=== PATIENT | female | born 1990 | race Caucasian/White ===

== ENCOUNTER 2019-12-19 10:20 | Emergency (ER) | payer BC ==
--- OUTSIDE RECORDS SUMMARY | 2019-12-19 10:31 | XMS REPORT | Continuity of Care Document ---
:1990 External Reference #:[id number] Author Name Jayy Cutler MD Address [address] [place] [id number] Care Team Providers Name Role Phone Yvonne Medina MD - Internal Medicine Care Team Information Aurist Problems Active Problems Provider Date Amenorrhea Jayy Cutler MD Onset: 12/30/2016 Mild hyperemesis-not delivered Jayy Cutler MD Onset: 12/30/2016 Encounter for supervision of other normal chief port director Ultrasound Onset: 12/30/2016 , first trimester Encounter for supervision of other normal Jayy Cutler MD Onset: 2016 , second trimester Previous uterine surgical scar Jayy Cutler MD Onset: 05/26/2017 False labor before 37 completed weeks of Tamie Curran CNM Onset: 06/25/2017 gestation, third trimester Convalescence after surgery Jayy Cutler MD Onset: 08/01/2017 Social History Type Date Description Comments Sex Unknown Tobacco Use Start: Unknown Never Smoked Cigarettes ETOH Use Denies alcohol use Recreational Drug Use Never Used Drugs Tobacco Use Start: Unknown Patient has never smoked Smoking Status Reviewed: 12/02/19 Patient has never smoked Exercise Type/Frequency Exercises sporadically Tattoo/Piercing Pierced Nasal Area Tattoo/Piercing Pierced ears XIMENA: 07/11/2020 Estimated Date of Based on Final XIMENA Delivery XIMENA: 08/17/2017 Estimated Date of Based on Final XIMENA Delivery XIMENA: 08/17/2017 Estimated Date of Based on Final XIMENA Delivery XIMENA: 02/27/2015 Estimated Date of Based on Final XIMENA Delivery Allergies, Adverse Reactions, Alerts Active Allergies Reaction Severity Comments Date Augmentin N&V 07/07/2014 Doxycycline 11/16/2019 Medications Active Medications SIG Qnty Indications Ordering Provider Date Adult take 1 each day Unknown Gummy/Dha/Folic Acid 0.4-25mg Chewtabs Medications Administered in Office Medication SIG Qnty Indications Ordering Provider Date Kyleena (19.5mg Yvonne EspositoNIKITA navas 10/07/2017 Levonorgestrel) Use Prior To 11/10/17 Only Injection Immunizations Description No Information Available Vital Signs Date Vital Result Comment 12/02/2019 10:06am Weight 207.00 lb Weight 93.895 kg BP Systolic 124 mmHg BP Diastolic 76 mmHg 3 Parity 2 11/16/2019 9:01am Weight 213.00 lb Weight 96.617 kg BP Systolic 134 mmHg BP Diastolic 84 mmHg Last Menstrual Period 2489725 Results Description No Information Available Procedures Date Code Description Status 12/02/2019 79964 Ultrasound, Uterus, Real Time W/Image Completed Documentation, Medical Devices Description No Information Available Encounters Type Date Location Provider Dx Diagnosis Office Visit 12/02/2019 [facility] Jayy N91.1 Secondary 1:45p And Gynecology MD Omayra amenorrhea Office Visit 11/16/2019 [facility] Licha N91.1 Secondary 9:00a And Gynecology Bhavani amenNIKITA ariza Z32.01 Encounter for test, result positive Assessments Date Code Description Provider 12/02/2019 Z34.01 Encounter for supervision of normal chief port director Ultrasound first , first trimester 12/02/2019 N91.1 Secondary amenorrhea Jayy Cutler MD 11/16/2019 N91.1 Secondary amenorrhea Licha Beckham CNM 11/16/2019 Z32.01 Encounter for test, result Licha Rankin CNM positive Plan of Treatment Future Appointment(s):12/23/2019 10:15 am - Licha Beckham CNM at [facility]/2020 - Jayy Cutler MDN91.1 Secondary amenorrhea Functional Status Functional Condition Comment Date Status Glasses Active Mental Status Description No Information Available Referrals Description No Information Available
[2019-12-19 10:50] LABS: ABS Eosinophils 0.1 10^3/ul (0-0.6); ABS Lymphocytes 1.7 10^3/ul (1.0-4.8); ABS Monocytes 0.5 10^3/ul (0-0.8); ABS Neutrophils 3.6 10^3/ul (1.5-7.7); Eosinophil % 1.1 %; Hematocrit 34 % (35-47); Hemoglobin 11.6 g/dL (12.0-16.0); Lymphocyte % 28.6 %; Mean Corpuscular HGB Conc 35 g/dL (31-36); Mean Corpuscular Hemoglobin 27 pg (27-31); Mean Corpuscular Volume 79 fL (80-97); Mean Platelet Volume 7.8 fL (7.4-10.4); Nucleated Red Blood Cells % 0.1; Platelet Count 275 10^3/uL (150-450); Red Blood Count 4.27 10^6 /uL (3.70-4.87); Red Cell Distribution Width 12 % (10-15); White Blood Count 5.9 10^3/uL (3.5-10.8)
[2019-12-19 10:56] LABS: INR 1.05 (0.82-1.09)
--- NOTE | 2019-12-19 11:04 | ED ---
HPI Chest Pain - HPI Summary HPI Summary: 29 y/o female presented to [facility] complaining of chest pain characterized as tightening in the chest while the patient was washing dishes this morning. She notes her heart rate was at 150bpm at the time and has fluctuated since. Patient denies leg pain, fever, chills, headaches, SOB, N/V, and dizziness. She states that she has not had these symptoms before. She has history of hyperlipidemia and has a SHx of a . She is 10 weeks and her G/ P/A is 3/2/0. - History of Current Complaint Chief Complaint: EDChestPainROMI Time Seen by Provider: 12/19/19 10:53 Hx Obtained From: Patient Onset/Duration: Started Hours Ago, Still Present Timing: Constant Current Severity: None Pain Intensity: 0 Pain Scale Used: 0-10 Numeric Chest Pain Location: Diffuse Chest Pain Radiates: No Character: Tightness Aggravating Factor(s): Nothing Alleviating Factor(s): Nothing Associated Signs and Symptoms: Positive: Chest Pain - tightness, Other: - tachycardia. Negative: Headaches, Dizziness, Shortness of Breath, Fever, Chills , Nausea, Vomiting - Allergy/Home Medications Allergies/Adverse Reactions: Allergies Allergy/AdvReac Type Severity Reaction Status Date / Time No Known Allergies Allergy Verified 05/05/16 09:13 PMH/Surg Hx/FS Hx/Imm Hx Previously Healthy: Yes Endocrine/Hematology History: Denies: Hx Diabetes Cardiovascular History: Reports: Hx Hypercholesterolemia Denies: Hx Hypotension, Hx Hypertension GI History: Denies: Hx Irritable Bowel Sensory History: Denies: Hx Legally Blind, Hx Deafness Opthamlomology History: Denies: Hx Legally Blind EENT History: Denies: Hx Deafness - Cancer History Hx Chemotherapy: No Hx Radiation Therapy: No - Surgical History Surgical History: None Surgery Procedure, Year, and Place: none - Immunization History Immunizations Up to Date: Yes Infectious Disease History: No Infectious Disease History: Denies: Traveled Outside the [place] in Last 30 Days - Family History Known Family History: Negative: Hypertension, Diabetes - Social History Occupation: Unemployed, Works From/At Home Lives: With Family Alcohol Use: Rare Hx Substance Use: No Substance Use Type: Reports: None Hx Tobacco Use: No Smoking Status (MU): Never Smoked Tobacco Review of Systems Negative: Fever, Chills Positive: Chest Pain - tightness, Other - tachycardia Negative: Shortness Of Breath Negative: Vomiting, Nausea Negative: Myalgia - lower extremities Neurological: Other - Negative: dizziness Negative: Headache All Other Systems Reviewed And Are Negative: Yes Physical Exam - Summary Physical Exam Summary: VITAL SIGNS: Reviewed. GENERAL: Patient is a well-developed and nourished female who is lying comfortable in the stretcher. Patient is not in any acute respiratory distress. HEAD AND FACE: No signs of trauma. No ecchymosis, hematomas or skull depressions. No sinus tenderness. EYES: PERRLA, EOMI x 2, No injected conjunctiva, no nystagmus. EARS: Hearing grossly intact. Ear canals and tympanic membranes are within normal limits. MOUTH: Oropharynx within normal limits. NECK: Supple, trachea is midline, no adenopathy, no JVD, no carotid bruit, no c- spine tenderness, neck with full ROM. CHEST: Symmetric, no tenderness at palpation. LUNGS: Clear to auscultation bilaterally. No wheezing or crackles. CVS: Tachycardic rate and normal rhythm, S1 and S2 present, no murmurs or gallops appreciated. ABDOMEN: Soft, non-tender. No signs of distention. No rebound, no guarding, and no masses palpated. Bowel sounds are normal. EXTREMITIES: FROM in all major joints, no edema, no cyanosis or clubbing. NEURO: Alert and oriented x 3. No acute neurological deficits. Speech is normal and follows commands. SKIN: Dry and warm. Triage Information Reviewed: Yes Vital Signs On Initial Exam: Initial Vitals Temp Pulse Resp BP Pulse Ox 97.8 F 139 19 151/68 100 12/19/19 10:25 12/19/19 10:25 12/19/19 10:25 12/19/19 10:25 12/19/19 10:25 Vital Signs Reviewed: Yes Procedures - Sedation Patient Received Moderate/Deep Sedation with Procedure: No Diagnostics - Vital Signs Vital Signs Temp Pulse Resp BP Pulse Ox 12/19/19 10:25 97.8 F 139 19 151/68 100 - Laboratory Lab Results: Lab Results 12/19/19 12/19/19 Range/Units 10:43 10:43 WBC 5.9 (3.5-10.8) 10^3/uL RBC 4.27 (3.70-4.87) 10^6 /uL Hgb 11.6 L (12.0-16.0) g/dL Hct 34 L (35-47) % MCV 79 L (80-97) fL MCH 27 (27-31) pg MCHC 35 (31-36) g/dL RDW 12 (10-15) % Plt Count 275 (150-450) 10^3/uL MPV 7.8 (7.4-10.4) fL Neut % (Auto) 60.9 % Lymph % (Auto) 28.6 % [place] % (Auto) 9.0 % Eos % (Auto) 1.1 % Baso % (Auto) 0.4 % Absolute Neuts (auto) 3.6 (1.5-7.7) 10^3/ul Absolute Lymphs (auto) 1.7 (1.0-4.8) 10^3/ul Absolute Monos (auto) 0.5 (0-0.8) 10^3/ul Absolute Eos (auto) 0.1 (0-0.6) 10^3/ul Absolute Basos (auto) 0.0 (0-0.2) 10^3/ul Absolute Nucleated RBC 0.0 10^3/ul Nucleated RBC % 0.1 INR (Anticoag Therapy) 1.05 (0.82-1.09) Result Diagrams: 12/19/19 10:43 12/19/19 10:43 Lab Statement: Any lab studies that have been ordered have been reviewed, and results considered in the medical decision making process. - Ultrasound Venous Doppler Study Ultrasound Interpretation Completed By: Radiologist Summary of Ultrasound Findings: NO RIGHT LOWER EXTREMITY DEEP VEIN THROMBOSIS. NO LEFT LOWER EXTREMITY DEEP VEIN THROMBOSIS. ED physician has reviewed this report. - EKG 1019 Cardiac Rate: Tachycardia - 134 BPM EKG Rhythm: Sinus Tachycardia ST Segment: Normal Ectopy: None Summary of EKG Findings: An EKG at 1019 reveals sinus tachycardia at 134 BPM, nml axis, nml intervals. No STEMI. No acute changes. Dr. Delgado has reviewed and interpreted this EKG at 1025 12/19/[address] Russell has confirmed the EKG at 1350 12/19/2019. Re-Evaluation - Re-Evaluation First Eval Re-Evaluation Time: 13:59 Change: Unchanged Comment: Pt declines CTA of her chest/thorax and an ABG test. Second Eval Re-Evaluation Time: 14:40 Comment: Patinet agreeable with plan for discharge. Chest Pain Course/Dx - Course Assessment/Plan: 29 y/o female presented to [facility] complaining of chest pain characterized as tightening in the chest while the patient was washing dishes this morning. She notes her heart rate was at 150bpm at the time and has fluctuated since. Patient denies leg pain, fever, chills, headaches, SOB, N/V, and dizziness. She states that she has not had these symptoms before. She has history of hyperlipidemia and has a SHx of a . She is 10 weeks and her G/P/A is 3/2/0. In the ED course the patient was placed on a operational test mechanic, IV access was obtained, IV fluids started. Blood test w/o a significant abnormality except for slight anemia with hemoglobin of 11.6 and hematocrit of 34, potassium of 3.4, creatinine of 0.4, glucose of 107, troponin of 0.01, and beta hCG of 33,414. Influenza A and B are negative. Bilateral lower extremity ultrasound shows no DVTs. Patient refused an ABG. The patient continues to be tachycardic between 110-120 bpm. The patients O2 sat is 100% on room air. I discussed the events of the need for a CTA of the chest to rule out PE, but the patient refuses. The patient understands the risks and benefits of this test. However, the patient still refuses. I discussed my physical exam and findings with Dr. Resendez from [facility] and he has no other recommendations. He has low suspicion for a PE since the patient is not hypoxic. The patient is saturating 100% on room air. I discussed all the findings and test results with the patient. Patient was instructed to return to the emergency room immediately if any of the symptoms return or worsen. Plan of care was discussed with the patient and understands and agrees. All questions were answered at patient satisfaction. There were no further complaints or concerns. Lung exam before discharge: CTA B/L. Good air exchange. No wheezing or crackles heard. CVS: S1 and S2 present. No murmurs appreciated. Patient is alert and oriented x 3. Patient is hemodynamically stable. Patient will be discharged home with follow up with [facility] in 2-3 days. - Diagnoses Provider Diagnoses: Tachycardia, - Provider Notifications Discussed Care Of Patient With: Vishnu Resendez - [facility] Instructed by Provider To: Other - I discussed the patients case with Dr. Resendez since the patient is refusing a CTA and ABG. He agrees with no further workup, but he recommends follow up with [facility] and cardiology as needed. He doesnt think the patient is suffering from a PE. Discharge ED - Sign-Out/Discharge Documenting (check all that apply): Patient Departure - Patient will be discharged home. - Discharge Plan Condition: Stable Disposition: HOME Patient Education Materials: Tachycardia (ED) Referrals: Yvonne Medina MD [Primary Care Provider] - 3 Days Vishnu Resendez MD [Medical Doctor] - 3 Days Won El MD [Medical Doctor] - If Needed Additional Instructions: Follow up with your primary care provider in 2-3 days. Follow up with [facility] in 2-3 days, and cardiology as needed. Return to the emergency department for any new or worsening symptoms. - Billing Disposition and Condition Condition: STABLE Disposition: Home - Attestation Statements Document Initiated by Miniibe: Yes Documenting Scribe: Obed Zhang Natalie George Provider For Whom Moshe is Documenting (Include Credential): Alonzo Russell MD Scribe Attestation: I, Obed Zhang Natalie George, scribed for Alonzo Russell MD on 12/19/19 at 2138. Scribe Documentation Reviewed: Yes Provider Attestation: The documentation as recorded by the scribe, Obed Zhang Natalie George accurately reflects the service I personally performed and the decisions made by me, Alonzo Russell MD Status of Scribe Document: Viewed
[2019-12-19 11:07] LABS: Albumin 3.8 g/dL (3.2-5.2); Albumin/Globulin Ratio 1.2 (1-3); BUN/Creatinine Ratio 17.4 (8-20); Calcium 9.1 mg/dL (8.6-10.3); EGFR African American 197.2 (>60); EGFR Non-African American 162.9 (>60); Globulin 3.2 g/dL (2-4); Potassium 3.4 mmol/L (3.5-5.0); Total Bilirubin 0.2 mg/dL (0.2-1.0)
[2019-12-19 11:10] LABS: Troponin I 0.01 ng/mL (<0.03)
[2019-12-19] MEDS ORDERED: NS 0.9% 1000 ML** 1,000 ML IV ONE (11:48)
[2019-12-19 12:42] LABS: Influenza A Molecular Negative (Negative); Influenza B Molecular Negative (Negative)
[2019-12-19] MEDS ORDERED: Potassium Chlor TAB* 20 MEQ TAB.ER PO ONE (13:37)
[2019-12-19 15:15] VITALS: BP 142/66
== END 2019-12-19 15:20 | disposition home or self-care (01) ==
LOC: ED 10:20
DX: O26.891 Other specified pregnancy related conditions, first trimester (principal); R00.0 Tachycardia, unspecified; Z3A.10 10 weeks gestation of pregnancy
CPT/HCPCS: 36415; 80053; 84484; 84702; 85025; 85610; 93005; 93970; 96360; 96361; 99282; A9270-GY